=== PATIENT | male | born 1995 | race Two or more races ===

== ENCOUNTER 2021-10-21 16:47 | Emergency (ER) | payer SELFPAY ==
[2021-10-21] MEDS ORDERED: Octyl 2-Cyanoacrylate 1 Tube TOP ONE (17:02)
[2021-10-21] MEDS ORDERED: Diphtheria,Pertussis(Acell),Tetanus Vaccine 0.5 ML Syringe IM ONE (17:02)
== END 2021-10-21 17:12 | disposition home or self-care (01) ==
LOC: MW.ED 16:47
DX: S01.01XA Laceration without foreign body of scalp, initial encounter (principal); Z23 Encounter for immunization; W01.10XA Fall on same level from slipping, tripping and stumbling with subsequent striking against unspecified object, initial encounter
CPT/HCPCS: 12001; 90471; 90715; 99282; A9270; 12011